=== PATIENT | female | born 1980 | race Caucasian/White ===

== ENCOUNTER 2016-06-27 14:01 | Emergency (ER) | payer MEDICAID ==
[~2016-06-27] VITALS: Ht 167.6 cm; Wt 79.0 kg
[2016-06-27 14:20] VITALS: BP 141/72
[2016-06-27] MEDS ORDERED: ACETAMINOPHEN 325MG TABLET PO ONE (17:15)
[2016-06-27] MEDS ORDERED: PREN-88 PO (20:23)
[2016-06-27] MEDS ORDERED: GUAIFENESIN-DM 200MG-20MG/10ML UDC PO NR (20:48)
[2016-06-27 21:08] LABS: HEMATOCRIT. 32.6 % (36.0-48.0); HEMOGLOBIN. 11.1 g/dL (12.0-16.0); MEAN CORPUSCULAR HGB CONC 34.2 g/dL (31.0-37.0); MEAN CORPUSCULAR VOLUME 90.8 fL (81.0-99.0); PLATELET 205 x1000/uL (130-400); RED BLOOD CELL COUNT 3.59 mill/uL (4.2-5.4); RED CELL DISTRIBUTION WIDTH 14.2 % (11.6-14.6); WHITE BLOOD COUNT 11.6 x1000/uL (4.5-11.0)
[2016-06-27 21:09] LABS: DIFFERENTIAL COMMENT 1
[2016-06-27 21:49] LABS: CLARITY URINE TURBID (CLEAR); COLOR URINE DARK YELLOW (YELLOW); GLUCOSE URINE NEGATIVE (NEGATIVE); KETONES URINE 3+ (NEGATIVE); LEUKOCYTE ESTERASE URINE 2+ (NEGATIVE); NITRITE URINE NEGATIVE (NEGATIVE); OCCULT BLOOD URINE 2+ (NEGATIVE); PROTEIN URINE 1+ (NEGATIVE); SPECIFIC GRAVITY URINE 1.035 (1.005-1.030)
[2016-06-27 22:08] LABS: PLATELET ESTIMATE NORMAL
[2016-06-27 22:20] LABS: BACTERIA URINE 3+; SQUAMOUS EPITHELIAL CELL URINE 2+ /lpf (RARE/1+)
[2016-06-27 22:21] LABS: MUCUS URINE 1+ /lpf (< = 2+)
[2016-06-27] MEDS ORDERED: LACTATED RINGERS 1,000 ML IV ONE (22:45)
[2016-06-27] MEDS ORDERED: CEFAZOLIN 2,000 MG in DEXT 5% WATER 100 ML IV SCH (23:00)
== END 2016-06-27 23:43 | disposition home or self-care (01) ==
LOC: ER 14:01 → L&D 19:59
PROVIDERS: ADMIT Obstetrics & Gynecology; ATTEND Obstetrics & Gynecology
DX: O99.512 Diseases of the respiratory system complicating pregnancy, second trimester (principal); R05 Cough; R09.81 Nasal congestion; Z3A.27 27 weeks gestation of pregnancy
CPT/HCPCS: 36415; 81001; 85007; 85027; 87804; 96365; 99285; G0378; J0690; J7120; 96360; 99281; J7060

== ENCOUNTER 2017-10-08 11:07 | Emergency (ER) | payer MEDICAID ==
[~2017-10-08] VITALS: Ht 167.6 cm; Wt 84.0 kg
[2017-10-08] MEDS ORDERED: ACETAMINOPHEN 325MG TABLET PO STA (11:22)
[2017-10-08] MEDS ORDERED: SODIUM CHLORIDE 0.9% 1,000 ML IV ONE (11:53)
[2017-10-08] MEDS ORDERED: MORPHINE SULFATE 4 MG/ML CPJ (NOT FOR IM USE) IV STA (11:53)
[2017-10-08] MEDS ORDERED: ONDANSETRON HCL 4MG/2ML VIAL IV STA (11:53)
[2017-10-08] MEDS ORDERED: FAMOTIDINE 20MG/2ML VIAL IV STA (11:53)
[2017-10-08] MEDS ORDERED: KETOROLAC 30MG/ML VIAL IV STA (11:53)
[2017-10-08 12:07] LABS: CHLORIDE 106 mEq/L (98-107)
[2017-10-08 12:08] LABS: BASOPHILS % 0.8 % (0.0-2.0); EOSINOPHILS % 0.9 % (0.0-5.0); HEMATOCRIT. 40.1 % (36.0-48.0); HEMOGLOBIN. 13.7 g/dL (12.0-16.0); LYMPHOCYTES % 22.5 % (20.0-50.0); MEAN CORPUSCULAR HEMOGLOBIN 29.5 pg (28.0-32.0); MEAN CORPUSCULAR VOLUME 86.2 fL (81.0-99.0); MEAN PLATELET VOLUME 8.4 fl (7.4-10.4); MONOCYTES % 5.3 % (2.0-8.0); NEUTROPHILS % 70.5 % (40.0-76.0); PLATELET 234 x1000/uL (130-400); RED BLOOD CELL COUNT 4.65 mill/uL (4.2-5.4); RED CELL DISTRIBUTION WIDTH 12.8 % (11.6-14.6)
[2017-10-08 12:23] LABS: CLARITY URINE CLOUDY (CLEAR); COLOR URINE AMBER (YELLOW); KETONES URINE TRACE (NEGATIVE); LEUKOCYTE ESTERASE URINE 1+ (NEGATIVE); NITRITE URINE NEGATIVE (NEGATIVE); OCCULT BLOOD URINE 1+ (NEGATIVE); PH URINE 5.5 (4.5-8.0); PROTEIN URINE 1+ (NEGATIVE); SPECIFIC GRAVITY URINE 1.027 (1.005-1.030); UROBILINOGEN URINE 0.2 E.U./dL (0.2-1.0)
[2017-10-08 12:26] LABS: PROTHROMBIN TIME 10.7 sec (9.4-11.6)
[2017-10-08 12:53] LABS: ETHANOL BLOOD < 10 mg/dL; HCG SCREEN NEGATIVE
[2017-10-08 15:39] VITALS: BP 111/74
== END 2017-10-08 15:50 | disposition home or self-care (01) ==
LOC: ER 12:46
DX: N20.0 Calculus of kidney (principal)
CPT/HCPCS: 36415; 71045; 74176; 80053; 81003; 83605; 83690; 83880; 84484; 84703; 85025; 85610; 87040; 87086; 96361; 96374; 96375; 99285; G0482; J1885; J2270; J3490; J7030; Z7610

== ENCOUNTER 2022-03-20 02:34 | Emergency (ER) | payer MEDICAID ==
[~2022-03-20] VITALS: Ht 170.2 cm; Wt 93.0 kg
[2022-03-20 02:45] VITALS: BP 115/91
[2022-03-20 04:00] LABS: BASOPHILS % 0.8 % (0.0-2.0); EOSINOPHILS % 1.4 % (0.0-5.0); HEMATOCRIT. 38.9 % (36.0-48.0); HEMOGLOBIN. 13.1 g/dL (12.0-16.0); LYMPHOCYTES % 23.2 % (20.0-50.0); MEAN CORPUSCULAR HEMOGLOBIN 29.8 pg (28.0-32.0); MEAN CORPUSCULAR VOLUME 88.4 fL (81.0-99.0); MEAN PLATELET VOLUME 8.5 fl (7.4-10.4); MONOCYTES % 6.4 % (2.0-8.0); NEUTROPHILS % 68.2 % (40.0-76.0); PLATELET 207 x1000/uL (130-400)
[2022-03-20 04:18] LABS: CHLORIDE 106 mEq/L (98-107); PROTHROMBIN TIME 10.5 sec (9.6-11.0)
[2022-03-20 04:40] LABS: B-HCG QUANTITATIVE 35479 mIU/mL (<3)
[2022-03-20 06:44] LABS: CLARITY URINE CLOUDY (CLEAR); COLOR URINE YELLOW (YELLOW); KETONES URINE NEGATIVE (NEGATIVE); LEUKOCYTE ESTERASE URINE NEGATIVE (NEGATIVE); NITRITE URINE NEGATIVE (NEGATIVE); OCCULT BLOOD URINE NEGATIVE (NEGATIVE); PH URINE 5.5 (4.5-8.0); PROTEIN URINE NEGATIVE (NEGATIVE); UROBILINOGEN URINE 0.2 E.U./dL (0.2-1.0)
== END 2022-03-20 08:13 | disposition home or self-care (01) ==
LOC: ER 02:57
DX: O46.91 Antepartum hemorrhage, unspecified, first trimester (principal); Z3A.01 Less than 8 weeks gestation of pregnancy; Z98.890 Other specified postprocedural states
CPT/HCPCS: 36415; 76801; 76817; 80053; 81003; 81025; 84702; 85025; 85610; 86850; 86900; 86901; 99284; Z7610

== ENCOUNTER 2022-08-25 13:08 | Emergency (ER) | payer MEDICAID ==
[~2022-08-25] VITALS: Ht 162.6 cm; Wt 96.1 kg
[2022-08-25 13:12] VITALS: BP 137/96
[2022-08-25 13:35] LABS: BASOPHILS % 0.7 % (0.0-2.0); EOSINOPHILS % 0.9 % (0.0-5.0); HEMATOCRIT. 40.2 % (36.0-48.0); HEMOGLOBIN. 13.8 g/dL (12.0-16.0); LYMPHOCYTES % 20.1 % (20.0-50.0); MEAN CORPUSCULAR HEMOGLOBIN 30.2 pg (28.0-32.0); MEAN CORPUSCULAR VOLUME 88.2 fL (81.0-99.0); MEAN PLATELET VOLUME 8.4 fl (7.4-10.4); MONOCYTES % 6.3 % (2.0-8.0); PLATELET 247 x1000/uL (130-400); RED BLOOD CELL COUNT 4.56 mill/uL (4.2-5.4); RED CELL DISTRIBUTION WIDTH 13.7 % (11.6-14.6)
[2022-08-25 13:42] LABS: CHLORIDE 107 mEq/L (98-107)
[2022-08-25 17:43] LABS: CLARITY URINE CLOUDY (CLEAR); COLOR URINE YELLOW (YELLOW); KETONES URINE NEGATIVE (NEGATIVE); LEUKOCYTE ESTERASE URINE 2+ (NEGATIVE); NITRITE URINE NEGATIVE (NEGATIVE); OCCULT BLOOD URINE 2+ (NEGATIVE); PROTEIN URINE 1+ (NEGATIVE); SPECIFIC GRAVITY URINE 1.018 (1.005-1.030); UROBILINOGEN URINE 0.2 E.U./dL (0.2-1.0)
[2022-08-25] MEDS ORDERED: KETOROLAC 30MG/ML VIAL IM ONE (18:00)
[2022-08-25] MEDS ORDERED: NITR-87 MT (18:22)
== END 2022-08-25 18:44 | disposition home or self-care (01) ==
LOC: ER 13:08
DX: N39.0 Urinary tract infection, site not specified (principal); Z98.890 Other specified postprocedural states
CPT/HCPCS: 36415; 74176; 80053; 81003; 81025; 85025; 87077; 87186; 99284

== ENCOUNTER 2023-04-05 06:09 | Inpatient (IN) | payer MEDICAID ==
[~2023-04-05] VITALS: Ht 170.2 cm; Wt 81.6 kg
[~2023-04-05 06:09] MED LIST: NITR-87 MT
[2023-04-05 07:54] LABS: CLARITY URINE CLOUDY (CLEAR); COLOR URINE YELLOW (YELLOW); GLUCOSE URINE NEGATIVE (NEGATIVE); KETONES URINE NEGATIVE (NEGATIVE); LEUKOCYTE ESTERASE URINE 2+ (NEGATIVE); NITRITE URINE POSITIVE (NEGATIVE); OCCULT BLOOD URINE 1+ (NEGATIVE); PH URINE 5.5 (4.5-8.0); PROTEIN URINE NEGATIVE (NEGATIVE); UROBILINOGEN URINE 0.2 E.U./dL (0.2-1.0)
[2023-04-05 08:09] LABS: SQUAMOUS EPITHELIAL CELL URINE 3+ /lpf (RARE/1+); WBC URINE 50-100 /hpf (0-2)
[2023-04-05 08:10] LABS: BACTERIA URINE 3+; YEAST URINE NONE SEEN
[2023-04-05 10:06] LABS: BASOPHILS % 0.8 % (0.0-2.0); EOSINOPHILS % 0.9 % (0.0-5.0); HEMATOCRIT. 42.2 % (36.0-48.0); HEMOGLOBIN. 14.4 g/dL (12.0-16.0); LYMPHOCYTES % 16.5 % (20.0-50.0); MEAN CORPUSCULAR HGB CONC 34.1 g/dL (31.0-37.0); MEAN CORPUSCULAR VOLUME 87.9 fL (81.0-99.0); MEAN PLATELET VOLUME 8.1 fl (7.4-10.4); MONOCYTES % 5.9 % (2.0-8.0); NEUTROPHILS % 75.9 % (40.0-76.0); PLATELET 274 x1000/uL (130-400); RED CELL DISTRIBUTION WIDTH 13.2 % (11.6-14.6); WHITE BLOOD COUNT 11.4 x1000/uL (4.5-11.0)
[2023-04-05 10:28] LABS: ALANINE AMINOTRANSFERASE 42 IU/L (10-49); ALBUMIN 4.2 g/dL (3.2-4.8); ASPARTATE AMINOTRANSFERASE 29 IU/L (<34); BILIRUBIN TOTAL 0.4 mg/dL (0.1-1.0); CALCIUM 8.9 mg/dL (8.7-10.4); CARBON DIOXIDE 26 mEq/L (21-32); CHLORIDE 107 mEq/L (98-107); CREATININE 0.6 mg/dL (0.6-1.0); GLUCOSE 99 mg/dL (70-105); POTASSIUM 3.8 mEq/L (3.5-5.1); PROTEIN TOTAL 7.4 g/dL (6.0-8.3); SODIUM 139 mEq/L (136-145); UREA NITROGEN BLOOD 12 mg/dL (9-23)
[2023-04-05] MEDS ORDERED: CEFTRIAXONE 1GM PREMIX 50 ML IV ONE (10:30)
[2023-04-05] MEDS ORDERED: TAMSULOSIN HCL 0.4MG SR CAPSULE PO ONE (10:30)
[2023-04-05] MEDS ORDERED: KETOROLAC 15MG/ML VIAL IV ONE (12:15)
[2023-04-05] MEDS ORDERED: KETOROLAC 15MG/ML VIAL IV NR (12:45)
[2023-04-05 13:45] VITALS: BP 109/73; PULSE 80; RESP 18; TEMP 97.8
[2023-04-05] MEDS: LACTATED RINGERS 1,000 ML IV SCH (13:45)
[2023-04-05] MEDS ORDERED: ACETAMINOPHEN 325MG TABLET PO PRN ×2 (13:45)
[2023-04-05] MEDS ORDERED: IPRATROPIUM/ALBUTEROL 0.5-3(2.5)MG/3ML NEB HHN PRN (13:45)
[2023-04-05] MEDS ORDERED: ONDANSETRON HCL 4MG/2ML INJ IV PRN (13:45)
[2023-04-05] MEDS ORDERED: GUAIFENESIN 200MG/10ML SUGAR FREE UDC PO PRN (13:45)
[2023-04-05] MEDS ORDERED: DOCUSATE SODIUM 100MG CAPSULE PO PRN (13:45)
[2023-04-05] MEDS ORDERED: CEFTRIAXONE 1GM PREMIX 50 ML IV SCH (13:45)
[2023-04-05] MEDS ORDERED: MAGNESIUM/ALUMINUM HYDROXIDE/SIMETHICONE 30ML UDC PO PRN (13:45)
[2023-04-05] MEDS ORDERED: CLONIDINE 0.1MG TABLET PO PRN (13:45)
[2023-04-05] MEDS ORDERED: KETOROLAC 15MG/ML VIAL IV PRN ×2 (14:15→18:00)
[2023-04-05 16:00] VITALS: BP 104/63; PULSE 77
[2023-04-05 16:57] LABS: TROPONIN I HIGH SENSITIVITY < 4 ng/L (3.0-34)
[2023-04-05 20:00] VITALS: BP 115/66; PULSE 90; RESP 18; TEMP 98.1
[2023-04-05] MEDS ORDERED: INFLUENZA VACCINE 05/PF 0.5 ML SYRINGE IM ONE (20:00)
[2023-04-05] MEDS ORDERED: FAMOTIDINE 20MG TABLET PO SCH (21:00)
[2023-04-06] VITALS: BP 100/68; PULSE 92; RESP 18; TEMP 98
[2023-04-06] MEDS: LACTATED RINGERS 1,000 ML IV SCH (03:05)
[2023-04-06 04:00] VITALS: BP 111/68; PULSE 72; RESP 18; TEMP 98.3
[2023-04-06 05:59] LABS: TROPONIN I HIGH SENSITIVITY < 4 ng/L (3.0-34)
[2023-04-06 07:02] LABS: BASOPHILS % 0.6 % (0.0-2.0); EOSINOPHILS % 2.3 % (0.0-5.0); HEMATOCRIT. 38.2 % (36.0-48.0); HEMOGLOBIN. 13.2 g/dL (12.0-16.0); LYMPHOCYTES % 23.5 % (20.0-50.0); MEAN CORPUSCULAR HEMOGLOBIN 30.3 pg (28.0-32.0); MEAN CORPUSCULAR HGB CONC 34.5 g/dL (31.0-37.0); MEAN CORPUSCULAR VOLUME 87.9 fL (81.0-99.0); MEAN PLATELET VOLUME 8.3 fl (7.4-10.4); MONOCYTES % 6.3 % (2.0-8.0); NEUTROPHILS % 67.3 % (40.0-76.0); PLATELET 247 x1000/uL (130-400); RED BLOOD CELL COUNT 4.34 mill/uL (4.2-5.4); RED CELL DISTRIBUTION WIDTH 13.2 % (11.6-14.6); WHITE BLOOD COUNT 9.1 x1000/uL (4.5-11.0)
[2023-04-06 08:00] VITALS: BP 116/76; PULSE 74; RESP 19; TEMP 96.3
[2023-04-06] MEDS ORDERED: TAMSULOSIN HCL 0.4MG SR CAPSULE PO SCH (09:00)
[2023-04-06 09:24] LABS: ALANINE AMINOTRANSFERASE 35 IU/L (10-49); ALBUMIN 3.7 g/dL (3.2-4.8); ASPARTATE AMINOTRANSFERASE 28 IU/L (<34); BILIRUBIN TOTAL 0.6 mg/dL (0.1-1.0); CALCIUM 8.7 mg/dL (8.7-10.4); CARBON DIOXIDE 25 mEq/L (21-32); CHLORIDE 106 mEq/L (98-107); CHOLESTEROL 142 mg/dL (<200); CREATININE 0.6 mg/dL (0.6-1.0); GLUCOSE 84 mg/dL (70-105); HDL CHOLESTEROL 25 mg/dL (>65); LDL CHOLESTEROL 124 mg/dL (5-100); POTASSIUM 3.8 mEq/L (3.5-5.1); SODIUM 140 mEq/L (136-145); THYROID STIMULATING HORMONE 1.03 uIU/mL (0.55-4.78); TRIGLYCERIDE 126 mg/dL (0-150); UREA NITROGEN BLOOD 10 mg/dL (9-23)
[2023-04-06] MEDS ORDERED: CEFTRIAXONE 1,000 MG in DEXTROSE 5% WATER 50 ML IV SCH (10:30)
[2023-04-06] MEDS ORDERED: SULF1TAB48 MT (11:42)
[2023-04-06 12:00] VITALS: BP 109/62; PULSE 76; RESP 19; TEMP 96.6
[2023-04-06 12:16] VITALS: BP 116/76; PULSE 74; TEMP 96.3; O2SAT 97
== END 2023-04-06 13:30 | disposition home or self-care (01) | DRG 720 ==
LOC: ER 06:21 → 6EST 12:22 → EDBEDREQ 12:25
PROVIDERS: ADMIT Hospitalist; ATTEND Hospitalist
DX: A41.9 Sepsis, unspecified organism (principal); N13.6 Pyonephrosis; N20.0 Calculus of kidney; Z98.891 History of uterine scar from previous surgery; Z79.899 Other long term (current) drug therapy
CPT/HCPCS: 36415; 74176; 80053; 80061; 81003; 83605; 84145; 84439; 84443; 84484; 85025; 87077; 87186; 90686; 99285; J0696; J1885; J7060